=== PATIENT | male | born 1965 | race Caucasian/White ===

== ENCOUNTER 2023-05-10 18:16 | Emergency (ER) | payer MEDICARE, MEDICAID ==
[~2023-05-10] VITALS: Ht 172.7 cm; Wt 93.7 kg
[~2023-05-10 18:16] MED LIST: AMA100C PO; AMLO5TAB95 PO; ATEN-169 PO; CARBIDOPA/LEVODOPA PO; DULO-31 PO; LISI40TA13 PO; SIMV-343 PO; TRIH2TAB3 PO
[2023-05-10 18:18] VITALS: TEMP 97.9
[2023-05-10 18:53] VITALS: BP 108/92; PULSE 72; RESP 18; O2SAT 94
[2023-05-10] MEDS ORDERED: PRED20TA PO (19:14)
[2023-05-10] MEDS: LORazepam 1 MG tablet PO ONE (19:14)
[2023-05-10] MEDS ORDERED: HYDR-3686 PO (19:22)
== END 2023-05-10 19:26 | disposition home or self-care (01) ==
LOC: ER 18:16
DX: S39.012A Strain of muscle, fascia and tendon of lower back, initial encounter (principal); M54.32 Sciatica, left side; I10 Essential (primary) hypertension; Z88.6 Allergy status to analgesic agent; Z88.5 Allergy status to narcotic agent; Z79.899 Other long term (current) drug therapy; Z87.891 Personal history of nicotine dependence; X58.XXXA Exposure to other specified factors, initial encounter; Y93.89 Activity, other specified; Y92.89 Other specified places as the place of occurrence of the external cause; Y99.8 Other external cause status
CPT/HCPCS: 99283